=== PATIENT | male | born 2000 | race Caucasian/White ===

== ENCOUNTER 2020-04-13 17:15 | Outpatient (REF) | payer BC, SELFPAY | END 2020-04-13 17:16 | disposition home or self-care (01) | LOC: HO.LAB 17:15 | PROVIDERS: Visit Provider Internal Medicine | DX: Z20.828 Contact with and (suspected) exposure to other viral communicable diseases (principal) | CPT/HCPCS: 87635 ==

== ENCOUNTER 2020-04-22 17:18 | Outpatient (REF) | payer BC, SELFPAY | END 2020-04-22 17:19 | disposition home or self-care (01) | LOC: HO.LAB 17:18 | PROVIDERS: Visit Provider Internal Medicine | DX: Z20.828 Contact with and (suspected) exposure to other viral communicable diseases (principal) | CPT/HCPCS: C9803; U0003 ==

== ENCOUNTER 2020-06-16 15:14 | Outpatient (REF) | payer BC, SELFPAY | END 2020-06-16 15:15 | disposition home or self-care (01) | LOC: HO.LAB 15:14 | PROVIDERS: Visit Provider Internal Medicine | DX: Z20.828 Contact with and (suspected) exposure to other viral communicable diseases (principal) | CPT/HCPCS: C9803; U0003 ==